=== PATIENT | male | born 1995 | race Caucasian/White ===

== ENCOUNTER 2017-01-28 03:52 | Emergency (ER) | payer SELFPAY ==
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
[2017-01-28] MEDS ORDERED: HYDROCODONE/ACETAMINOPHEN 5-325 MG 6 TAB/DSPK PO PRN (05:09)
[2017-01-28 07:39] VITALS: BP 129/86
== END 2017-01-28 06:02 | disposition home or self-care (01) ==
LOC: ER 03:52
DX: S00.81XA Abrasion of other part of head, initial encounter (principal); S00.31XA Abrasion of nose, initial encounter; S60.811A Abrasion of right wrist, initial encounter; V48.5XXA Car driver injured in noncollision transport accident in traffic accident, initial encounter; M25.531 Pain in right wrist; M25.572 Pain in left ankle and joints of left foot
CPT/HCPCS: 99283; 73610; 73110; L1902

== ENCOUNTER 2018-07-04 20:31 | Emergency (ER) | payer SELFPAY ==
[2018-07-04 20:39] VITALS: BP 127/82
--- NOTE | 2018-07-04 23:40 | ER Document Report ---
ED Skin Rash/Insect Bite/Abscs - General Chief Complaint: Rash Stated Complaint: POSSIBLE ALLERGIC REACTION Time Seen by Provider: 07/04/18 23:20 Mode of Arrival: Ambulatory Information source: Patient TRAVEL OUTSIDE OF THE [place] 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 He said he has had in the past and this rash is similar to what he had before. He denies any fever, headache or any other symptoms. 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 - Related Data Allergies/Adverse Reactions: No Known Allergies Allergy (Verified 05/03/12 10:28) Past Medical History - General Information source: Patient - Social History Smoking Status: Never Smoker Family History: Reviewed & Not Pertinent Renal/ Medical History: Denies: Hx Peritoneal Dialysis - Immunizations Immunizations up to date: Yes Hx Diphtheria, Pertussis, Tetanus Vaccination: Yes Review of Systems - Review of Systems Constitutional: No symptoms reported EENT: No symptoms reported Cardiovascular: No symptoms reported Respiratory: No symptoms reported Gastrointestinal: No symptoms reported Skin: Rash - Erythematous, vesicular rash that extends over the volar and dorsal left hand and wrist that extends longterm up his forearm. Small vesicular eruptions over her face, on stomach, on right proximal upper extremity. Physical Exam - Vital signs Vitals: Temp Pulse Resp BP Pulse Ox 98.2 F 65 16 127/82 H 99 07/04/18 20:36 07/04/18 20:36 07/04/18 20:36 07/04/18 20:36 07/04/18 20:36 Course - Re-evaluation Re-evalutation: 07/04/18 23:41 Symptoms most consistent with poison oak. Plan to initiate a 21-day prednisone taper. - Vital Signs Vital signs: Temp Pulse Resp BP Pulse Ox 98.2 F 65 16 127/82 H 99 07/04/18 20:36 07/04/18 20:36 07/04/18 20:36 07/04/18 20:36 07/04/18 20:36 Discharge - Discharge Clinical Impression: Poison oak Condition: Good Disposition: HOME, SELF-CARE Additional Instructions: Your symptoms are most consistent with poison oak. We are placing you on a 21- day course of steroids. Please closely follow the directions on the medication. You will take 60 mg a day for 7 days, that is 3 tablets each day. You will then take 40 mg a day for 7 days which is 2 tablets/day. Finally, you will take 20 mg a day for 7 days which is 1 tablet/day. The oils of poison oak are what is contagious and it is possible to transmitted skin to skin. Therefore, be careful when in contact with other people. Return for any difficulty breathing, vomiting, passing out, or any other symptoms that are worrisome to you. Prescriptions: Prednisone [Deltasone 20 mg Tablet] 20 mg PO DAILY #42 tablet
== END 2018-07-04 23:55 | disposition home or self-care (01) ==
LOC: ER 20:31
DX: L23.7 Allergic contact dermatitis due to plants, except food (principal); R21 Rash and other nonspecific skin eruption
CPT/HCPCS: 99282

== ENCOUNTER 2018-09-16 13:15 | Emergency (ER) | payer SELFPAY ==
[2018-09-16 13:46] VITALS: BP 127/73
[2018-09-16] MEDS ORDERED: IBUPROFEN 600 MG TABLET PO ONE (14:15)
--- NOTE | 2018-09-16 14:18 | ER Document Report ---
HPI - HPI Time Seen by Provider: 09/16/18 14:07 Pain Level: 4 Context: Patient is a 23-year-old male who presents emergency department with a chief complaint of left elbow pain. Yesterday he went to go slam dunk a ball on the basketball court and is hanging onto the rim and fell on back on his hand but ended up having elbow pain. He has limited range of motion to his elbow. Complains of mild numbness and tingling. The last time he took Tylenol for the pain was last night. He is worried that his elbow may be dislocated. - CONSTITUTIONAL Constitutional: DENIES: Fever, Chills - NEURO Neurology: DENIES: Headache - RESPIRATORY Respiratory: DENIES: Coughing - REPRODUCTIVE Reproductive: DENIES: : - MUSCULOSKELETAL Musculoskeletal: REPORTS: Extremity pain - DERM Skin Color: Normal - Left elbow Skin Problems: None Past Medical History - Social History Smoking Status: Never Smoker Family History: Reviewed & Not Pertinent Renal/ Medical History: Denies: Hx Peritoneal Dialysis - Immunizations Immunizations up to date: Yes Hx Diphtheria, Pertussis, Tetanus Vaccination: Yes Vertical Provider Document - INFECTION CONTROL TRAVEL OUTSIDE OF THE [place] IN LAST 30 DAYS: No - HEENT HEENT: Atraumatic - RESPIRATORY Respiratory: No Respiratory Distress - CARDIOVASCULAR Cardiovascular: Regular Rate, Regular Rhythm Pulses: Normal: Radial - MUSCULOSKELETAL/EXTREMETIES Musculoskeletal/Extremeties: FROM - NEURO Level of Consciousness: Awake, Alert, Appropriate Motor/Sensory: No Motor Deficit, No Sensory Deficit, No Pronator Drift - DERM Integumentary: Warm, Dry Course - Re-evaluation Re-evalutation: 09/16/18 14:19 Based off patient's history and physical exam, I do not suspect patient has a shoulder or hand injury. He will be sent for an elbow x-ray to rule out any acute fracture or dislocation. 09/16/18 14:55 Patient's elbow x-ray is negative for any acute fracture. I suspect that he has a muscular injury with mild nerve involvement. I do not suspect compartment syndrome, or any life-threatening etiology at this time. He will be sent home with rest ice elevation compression and follow-up with his primary care provider. Verbal discharge instructions were given to the patient. They verbalized understanding. They are stable for discharge. - Vital Signs Vital signs: Temp Pulse Resp BP Pulse Ox 97.7 F 71 18 127/73 H 100 09/16/18 13:45 09/16/18 13:45 09/16/18 13:45 09/16/18 13:45 09/16/18 13:45 Procedures - Immobilization Left Elbow Pre-Proc Neuro Vasc Exam: Normal Immobilizer type: Sling Performed by: PCT Post-Proc Neuro Vasc Exam: Normal Alignment checked and good: Yes Discharge - Discharge Clinical Impression: Elbow pain, left Condition: Stable Disposition: HOME, SELF-CARE Additional Instructions: You were seen today in the emergency department for left elbow pain. There is no fracture. Please make sure you rest your arm, ice it, elevate your arm, and wear the sling for comfort. You may take Motrin 600 mg and Tylenol 1000 mg every 6 hours as needed for your pain. Please follow-up with your primary care provider in regards to this visit. If you develop worsening swelling, or have any symptoms that are worrisome to you, please return to the emergency department.
--- NOTE | 2018-09-16 14:43 | RADIOLOGY REPORT (SQ) ---
EXAM DESCRIPTION: ELBOW LEFT OVER 2 VIEWS COMPLETED DATE/TIME: 09/16/2018 2:34 pm REASON FOR STUDY: fall on elbow COMPARISON: None. NUMBER OF VIEWS: Four views. TECHNIQUE: AP, lateral, and both oblique radiographic images acquired of the left elbow. LIMITATIONS: None. FINDINGS: MINERALIZATION: Normal. BONES: No acute fracture or dislocation. No worrisome bone lesions. JOINT: No effusion. SOFT TISSUES: No soft tissue swelling. No foreign body. OTHER: No other significant finding. IMPRESSION: NEGATIVE STUDY OF THE LEFT ELBOW. NO RADIOGRAPHIC EVIDENCE OF ACUTE INJURY. TECHNICAL DOCUMENTATION: JOB ID: [id number] [email or web address]- All Rights Reserved Reading location - IP/workstation name: [email or web address]
== END 2018-09-16 15:12 | disposition home or self-care (01) ==
LOC: ER 13:15
DX: M25.522 Pain in left elbow (principal); R20.0 Anesthesia of skin; R20.2 Paresthesia of skin; W17.89XA Other fall from one level to another, initial encounter; Y93.67 Activity, basketball
CPT/HCPCS: 99283

== ENCOUNTER 2019-07-15 00:07 | Emergency (ER) | payer OTHER ==
[2019-07-15 00:15] VITALS: BP 137/70
[2019-07-15] MEDS ORDERED: HYDROXYZINE HCL 10 MG TABLET PO ONE (01:13)
--- NOTE | 2019-07-15 01:18 | ER Document Report ---
ED Skin Rash/Insect Bite/Abscs - General Chief Complaint: Rash Stated Complaint: POSSIBLE RASH Time Seen by Provider: 07/15/19 01:11 Notes: 24-year-old male presents with rash that is ongoing for 3 months. Patient states it started off on his elbows and has spread all throughout. Patient states that it is very itchy. Patient has areas between his fingers on his abdomen and chest. Patient denies any swelling to lips/throat/tongue. TRAVEL OUTSIDE OF THE [place] IN LAST 30 DAYS: No - Related Data Allergies/Adverse Reactions: No Known Allergies Allergy (Verified 05/03/12 10:28) Past Medical History - Social History Smoking Status: Never Smoker Chew tobacco use (# tins/day): No Frequency of alcohol use: None Family History: Reviewed & Not Pertinent Patient has suicidal ideation: No Patient has homicidal ideation: No Renal/ Medical History: Denies: Hx Peritoneal Dialysis - Immunizations Immunizations up to date: Yes Hx Diphtheria, Pertussis, Tetanus Vaccination: Yes Review of Systems - Review of Systems Notes: Constitutional: Negative for fever. HENT: Negative for sore throat. Eyes: Negative for visual changes. Cardiovascular: Negative for chest pain. Respiratory: Negative for shortness of breath. Gastrointestinal: Negative for abdominal pain, vomiting or diarrhea. Genitourinary: Negative for dysuria. Musculoskeletal: Negative for back pain. Skin: Positive for rash. Neurological: Negative for headaches, weakness or numbness. 10 point ROS negative except as marked above and in HPI. Physical Exam - Vital signs Vitals: Temp Pulse Resp BP Pulse Ox 97.9 F 82 20 137/70 H 99 07/15/19 00:12 07/15/19 00:12 07/15/19 00:12 07/15/19 00:12 07/15/19 00:12 - Notes Notes: GENERAL: Well-appearing, well-nourished and in no acute distress. Patient speaks full sentences without difficulty. HEAD: Atraumatic, normocephalic. EYES: Extraocular movements intact, sclera anicteric, conjunctiva are normal. NECK: Normal range of motion, supple without lymphadenopathy or JVD. EXTREMITIES: Normal range of motion, no pitting or edema. No clubbing or cyanosis. NEUROLOGICAL: Cranial nerves II through XII grossly intact. Normal speech, normal gait. PSYCH: Normal mood, normal affect. SKIN: Rash noted to chest/abdomen. Patient also has rash in between fingers. Area erythematous petechiae and excoriations. No swelling. Warm, Dry, normal turgor, no rashes or lesions noted. Course - Re-evaluation Re-evalutation: 07/15/19 24-year-old male presents with rash that is ongoing for 3 months. Patient speaks full sentences and has no lip/tongue/throat swelling. Patient has no dyspnea. Patient is nontoxic, well-appearing. Rash noted in between fingers, on chest, on abdomen. Seems consistent with scabies. Will treat with permethrin and give patient close follow-up with PCP. Return precautions given. Patient also received Atarax in ER and given prescription for Atarax and Benadryl is not working. All questions/concerns addressed prior to discharge. - Vital Signs Vital signs: Temp Pulse Resp BP Pulse Ox 97.9 F 82 20 137/70 H 99 07/15/19 00:46 07/15/19 00:12 07/15/19 00:46 07/15/19 00:12 07/15/19 00:46 Discharge - Discharge Clinical Impression: Scabies Condition: Stable Disposition: HOME, SELF-CARE Instructions: Scabies ([facility]) Additional Instructions: Please apply cream from head to toe, leave on for 8 to 14 hours, rinse and may repeat in 7 days if reappears. Please take Atarax as needed for itching. Please note that it may make you drowsy. Please follow-up with PCP listed in 3 to 5 days. Return to ER for any worsening symptoms, including fever, lip/to ngue/throat swelling, shortness of breath, worsening rash, or any other symptoms that concern you. Prescriptions: Hydroxyzine HCl [Atarax 25 mg Tablet] 1 - 2 tab PO QID #25 tablet Permethrin [Elimite] 60 gm TP ONCE PRN #1 cream.gm. PRN Reason: Forms: Return to Work Referrals: AILYN RITCHIE MD [ACTIVE STAFF] - Follow up in 3-5 days
== END 2019-07-15 01:18 | disposition home or self-care (01) ==
LOC: ER 00:07
DX: B86 Scabies (principal)
CPT/HCPCS: 99282